=== PATIENT | male | born 1940 | race Caucasian/White ===

== ENCOUNTER 2018-01-17 09:01 | Day surgery (SDC) | payer OTHER ==
[2018-01-17 09:36] VITALS: BMI 22.1
[2018-01-17] MEDS ORDERED: PROPOFOL 20 ML ONE ×2 (10:07)
[2018-01-17] MEDS ORDERED: MIDAZOLAM HCL 2 MG/2 ML SINGLE DOSE VIAL ONE (10:07)
[2018-01-17] MEDS ORDERED: SUCCINYLCHOLINE CHLORIDE 200 MG/10 ML VIAL ONE (10:07)
[2018-01-17] MEDS ORDERED: ONDANSETRON 4 MG/2 ML VIAL IVPUSH PRN (11:31)
[2018-01-17] MEDS ORDERED: PROMETHAZINE HCL 25 MG/1 ML VIAL IVPUSH PRN (11:31)
[2018-01-17] MEDS ORDERED: oxyCODONE HCL 5 MG TABLET PO PRN ×2 (11:31)
[2018-01-17] MEDS ORDERED: oxyCODONE HCL 5 MG TABLET ONE ×2 (12:56→13:55)
[2018-01-17 18:38] VITALS: TEMP 97.7
[2018-01-17 18:52] VITALS: BP 142/68; PULSE 77
--- NOTE | 2018-01-19 11:19 | OP ---
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 PROCEDURE: 1. Examination under anesthesia. 2. Levator recession, right upper lid. 3. Full-thickness blepharotomy, central right upper lid. 4. Lateral canthal tendon plication/lateral tarsal strip, right upper lid. SURGEON: Steven Ames MD ANESTHESIA: Local with minimal sedation. ESTIMATED BLOOD LOSS: Was 1-2 mL. COMPLICATIONS: None. OPERATIVE REPORT: Patient was brought to the operating room, placed on the operating room table. He had been seen the day before and keratopathy had been noted despite frequent usage of artificial tears and ointments. Lid crease was marked and excess laxity in the lateral portion of the eyelid was noted; therefore, a lateral canthal line was marked for possible lateral canthal tendon plication. Timeout was performed. Tetracaine was placed in both eyes and 2% Xylocaine with 1:100,000 epinephrine was injected for 0.75 mL along the prior incision of the lid crease in the right upper lid and approximately 1-2 mL was injected in the lateral canthus down to periosteum. The patient was prepped and draped in usual sterile fashion, exposing both eyes. Prior lid crease incision was now opened, and this was dissected down with gentle blunt spreading to the levator aponeurosis, which was sutured to the top of the tarsus and centrally, and the central suture was identified prior to this during the exam under anesthesia. Gentle pressure on the upper lid was placed in a downward direction, and the area of tethering could be marked on the external surface of the eyelid and was so marked. The tethering coincided with the single suture attachment of the levator to the top of the short tarsus, and in light of his weakened orbicularis and despite the excellent margin reflex distances of approximately 0.5 above the visual axis, his orbicularis proved to be too weak to effectively create a normal blink, and, therefore, he was not tolerating the eyelid position. This had been discussed with the patient preoperatively. The Vicryl was then removed, excised, and levator was dissected off of the superior border of the tarsus, and then a full-thickness blepharotomy was performed centrally and continued nasally and laterally until the patient was allowed to wake up at this point and was able to blink with a much improved blink. Initially, despite removal of the suture and release of the levator just at the suture site, blink was still markedly incomplete, and once the blepharotomy was performed, a much improved blink was noted. However, it was still somewhat incomplete, although improved, and it was clear that with gentle pressure of the lateral portion of the eyelid which would simulate a lateral canthal tendon plication or tarsal strip, the blink improved significantly. Therefore, it was elected to add that procedure to improve the eyelid closure. Antibiotic irrigation was used throughout the case. A lateral canthal incision was made. This was carried through skin and subcutaneous tissue down to the oval rim, and then the superior bull of the lateral canthal tendon was isolated and from the overlying skin orbicularis and lash line, and it was released at the oval rim with minimal dissection to maintain a good vascular supply to the eyelid, and then it was reattached to the oval rim at the appropriate horizontal position, joining bull to lateral canthal tendon with double-armed 5-0 Prolene suture reinforced with two 6-0 Vicryl lasso sutures. The lateral canthal angle was re-formed with a 5-0 chromic buried upper lower lid, and this tarsal strip then was reattached at the internal surface of the oval rim at the appropriate position. The Prolene was then tied, excess tarsal strip was overlapped 5-0 chromic, subcutaneous tissues were closed after antibiotic irrigation with 5-0 chromic and the skin with interrupted 6-0 plain suture. A markedly improved blink and an MRD somewhere between 0 and 0.5 was identified at this point. The eyelid crease was then closed with an interrupted 6-0 plain suture after antibiotic irrigation and it was determined that to maintain the blepharotomy in an open position for the next 24 hours or so, a reverse floor suture was placed, a double-armed 4-0 silk passed through a number 10 Romansh bolster was then tied through the skin and piña line of the upper lid lateral to the lateral limbus and secured to the cheek with Mastisol, Steri-Strips, and this would just help to ensure that the blepharotomy remained open and during the healing. Bacitracin ointment was placed in the eye and on all sutures, and the patient was taken to the recovery room in stable condition. STEVEN AMES M.D. [id number]
== END 2018-01-17 15:25 | disposition home or self-care (01) ==
LOC: FASU 09:01
PROVIDERS: ATTEND Ophthalmology
PROC: 08BN0ZZ Excision of Right Upper Eyelid, Open Approach (ICD-10-PCS; principal; 2018-01-17 10:30)
DX: H16.211 Exposure keratoconjunctivitis, right eye (principal); H18.9 Unspecified disorder of cornea
CPT/HCPCS: 94760